=== PATIENT | female | born 2000 | race Hispanic/Latino ===

== ENCOUNTER 2024-02-27 21:44 | Emergency (ER) | payer SELFPAY ==
[~2024-02-27] VITALS: Ht 157.5 cm; Wt 76.2 kg
[2024-02-27 21:47] VITALS: TEMP 98.2
[2024-02-27] MEDS: IBUPROFEN 400 MG TAB PO ONE (22:21)
[2024-02-27] MEDS: ONDANSETRON HCL INJ 2MG/ML 2ML 2 MG/ML VIAL IV STA (22:38)
[2024-02-27 22:48] LABS: BASOPHILS % 0.3 % (0.0-1.0); EOSINOPHILS # (AUTO) 0.2 (0.0-0.4); EOSINOPHILS % 1.5 % (0.0-6.0); HEMATOCRIT 39.6 % (34.2-44.1); HEMOGLOBIN 12.8 g/dL (12.0-16.0); LYMPHOCYTES # (AUTO) 2.2 (1.0-3.2); LYMPHOCYTES % 18.8 % (18.0-39.1); MEAN CORPUSCULAR HEMOGLOBIN 28.3 pg (28-32); MEAN CORPUSCULAR HGB CONC 32.3 g/dL (31-35); MEAN CORPUSCULAR VOLUME 87.6 fL (81-99); MONOCYTES # (AUTO) 0.7 (0.2-0.8); MONOCYTES % 5.9 % (4.4-11.3); NEUTROPHILS # (AUTO) 8.5 (2.1-6.9); NEUTROPHILS % 73.2 % (38.7-80.0); PLATELET COUNT 312 x10e3/uL (140-360); RED BLOOD COUNT 4.52 x10e6/uL (3.6-5.1); RED CELL DISTRIBUTION WIDTH 13.6 % (11.7-14.4); WHITE BLOOD COUNT 11.62 x10e3/uL (4.8-10.8)
[2024-02-27 23:02] LABS: CALCIUM 9.4 mg/dL (8.4-10.2); CREATININE, SERUM 0.74 mg/dL (0.57-1.11)
[2024-02-27 23:04] LABS: LIPASE 22 U/L (8-78)
[2024-02-27] MEDS ORDERED: IOPAMIDOL 370 MG/ML 100 ML INFUS..BTL INJ ONE (23:28)
[2024-02-27 23:41] LABS: BILIRUBIN,URINE NEGATIVE (NEGATIVE); CLARITY,URINE CLEAR (CLEAR); COLOR,URINE YELLOW (YELLOW); GLUCOSE, URINE NEGATIVE (NEGATIVE); KETONES,URINE NEGATIVE (NEGATIVE); LEUKOCYTE ESTERASE ,URINE NEGATIVE (NEGATIVE); NITRITE,URINE NEGATIVE (NEGATIVE); PH,URINE 7.5 (5 - 7); PROTEIN,URINE DIPSTICK NEGATIVE (NEGATIVE); URINE UROBILINOGEN 1 mg/dL (0.2 - 1)
[2024-02-27 23:43] LABS: WBC,URINE (MAN) 0-5 /HPF (0-5)
[2024-02-27 23:44] LABS: BACTERIA,URINE MANY /HPF; CALCIUM OXALATE CRYSTALS,UR MANY (FEW); EPITHELIAL CELLS,URINE MODERATE /LPF
[2024-02-28 00:45] VITALS: PULSE 83; RESP 21
[2024-02-28] MEDS ORDERED: ONDANSETRON ODT4 MG SL (01:38)
[2024-02-28 01:47] VITALS: BP 110/69; PULSE 76; RESP 22; TEMP 98.7; O2SAT 99
== END 2024-02-28 01:45 | disposition home or self-care (01) ==
LOC: ER 21:50
DX: R11.2 Nausea with vomiting, unspecified (principal); R07.89 Other chest pain; V43.52XA Car driver injured in collision with other type car in traffic accident, initial encounter; Y92.488 Other paved roadways as the place of occurrence of the external cause
CPT/HCPCS: 36415; 71260; 74177; 80048; 81001; 83690; 84484; 84702; 85025; 93005; 99284; J2405; Q9967